=== PATIENT | male | born 1940 | race Caucasian/White ===

== ENCOUNTER → 2016-11-27 | Outpatient (CLI) | payer MEDICARE, BC ==
[~2016-11-27] MED LIST: ASPIRIN 32325 MG/TAB PO; BENICAR20 MG PO; GLIPIZIDE10 M2 PO; LIPITOR20 M1 PO; PROTONIX TR40 M1 PO; TOPROL XL 50MG50 MG PO
== END ==
LOC: LAB 12:57
DX: E11.9 Type 2 diabetes mellitus without complications (principal); I10 Essential (primary) hypertension

== ENCOUNTER → 2016-12-09 | Outpatient (CLI) | payer MEDICARE, BC | LOC: LAB 15:49 | DX: Z11.59 Encounter for screening for other viral diseases (principal) ==

== ENCOUNTER → 2016-12-24 | Outpatient (CLI) | payer MEDICARE, BC ==
[2016-03-21 17:18] VITALS: BP 152/73
== END ==
LOC: LAB 12:17
DX: R39.198 Other difficulties with micturition (principal)

== ENCOUNTER → 2017-04-12 | Outpatient (CLI) | payer MEDICARE, BC ==
[2016-03-21 17:18] VITALS: BP 152/73
== END ==
LOC: LAB 11:49
DX: E11.42 Type 2 diabetes mellitus with diabetic polyneuropathy (principal); E78.2 Mixed hyperlipidemia

== ENCOUNTER → 2017-07-05 | Outpatient (CLI) | payer MEDICARE, BC ==
[2016-03-21 17:18] VITALS: BP 152/73
== END ==
LOC: LAB 15:11
DX: E11.42 Type 2 diabetes mellitus with diabetic polyneuropathy (principal)

== ENCOUNTER → 2017-09-07 | Outpatient (CLI) | payer MEDICARE, BC ==
[2016-03-21 17:18] VITALS: BP 152/73
[2017-09-07 14:29] LABS: MEAN PLATELET VOLUME 9.8 fl (7.4-10.4); RED BLOOD COUNT 5.16 M/mm3 (4.20-5.60); WHITE BLOOD COUNT 7.2 K/mm3 (4.8-10.8)
[2017-09-07 14:49] LABS: ALBUMIN 4.1 g/dL (3.5-5.0); BUN/CREATININE RATIO 26.3 (6.0-26.0); CALCIUM 9.4 mg/dL (8.4-10.2); POTASSIUM 4.6 mmol/L (3.6-5.0); TOTAL PROTEIN 7.3 g/dL (6.3-8.2)
[2017-09-07 15:24] LABS: PH-URINE 5.5 (5.0 - 8.0); URINE APPEARANCE CLEAR; URINE COLOR YELLOW
[2017-09-07 15:25] LABS: URINE BILIRUBIN NEGATIVE (NEGATIVE); URINE BLOOD NEGATIVE (NEGATIVE); URINE KETONE NEGATIVE (NEGATIVE); URINE LEUKOCYTE ESTERASE NEGATIVE (NEGATIVE); URINE NITRATE NEGATIVE (NEGATIVE); URINE PROTEIN(semi-quant) NEGATIVE (NEGATIVE); URINE UROBILINOGEN NORMAL (NORMAL); URINE WBC 0-1 /hpf (0-3)
== END ==
LOC: LAB 14:15
PROVIDERS: Family Medicine
DX: I25.10 Atherosclerotic heart disease of native coronary artery without angina pectoris (principal); E11.9 Type 2 diabetes mellitus without complications; E78.5 Hyperlipidemia, unspecified; E66.01 Morbid (severe) obesity due to excess calories

== ENCOUNTER → 2017-10-13 | Outpatient (CLI) | payer MEDICARE, BC ==
[2016-03-21 17:18] VITALS: BP 152/73
[2017-10-13 14:28] LABS: ALBUMIN 3.9 g/dL (3.5-5.0); BUN/CREATININE RATIO 23.8 (6.0-26.0); CALCIUM 9.2 mg/dL (8.4-10.2); POTASSIUM 4.6 mmol/L (3.6-5.0); TOTAL PROTEIN 7.1 g/dL (6.3-8.2)
== END ==
LOC: LAB 13:58
PROVIDERS: Registered Nurse
DX: E11.42 Type 2 diabetes mellitus with diabetic polyneuropathy (principal)

== ENCOUNTER → 2018-02-22 | Outpatient (CLI) | payer MEDICARE, BC ==
[2016-03-21 17:18] VITALS: BP 152/73
[2018-02-22 14:21] LABS: EOS # 0.2 (0.04-0.40); EOS % 1.9 % (0.0-4.0); HEMATOCRIT 49.7 % (42.0-52.0); LYMPH# 1.2 (1.50-4.00); MEAN CELL VOLUME 97 fl (78-100); MEAN CORPUSCULAR HEMOGLOBIN 31 pg (27-31); MEAN CORPUSCULAR HGB CONC 32 g/dL (33-37); MEAN PLATELET VOLUME 9.8 fl (7.4-10.4); MONO # 0.9 (0.20-0.80); NEU # 5.5 (1.40-6.50); PLATELET COUNT 269 K/mm3 (130-400); RED BLOOD COUNT 5.12 M/mm3 (4.20-5.60); RED CELL DISTRIBUTION WIDTH 13.3 % (11.5-14.5); WHITE BLOOD COUNT 7.8 K/mm3 (4.8-10.8)
[2018-02-22 14:54] LABS: ALBUMIN 3.9 g/dL (3.5-5.0); BUN/CREATININE RATIO 27.1 (6.0-26.0); CALCIUM 9.6 mg/dL (8.4-10.2); POTASSIUM 4.5 mmol/L (3.6-5.0); TOTAL BILIRUBIN 0.9 mg/dL (0.2-1.3); TOTAL PROTEIN 6.8 g/dL (6.3-8.2)
[2018-02-22 16:00] LABS: URINE APPEARANCE CLEAR; URINE BILIRUBIN NEGATIVE (NEGATIVE); URINE BLOOD NEGATIVE (NEGATIVE); URINE COLOR YELLOW; URINE KETONE NEGATIVE (NEGATIVE); URINE LEUKOCYTE ESTERASE NEGATIVE (NEGATIVE); URINE NITRATE NEGATIVE (NEGATIVE); URINE PROTEIN(semi-quant) NEGATIVE (NEGATIVE); URINE UROBILINOGEN NORMAL (NORMAL); URINE WBC 0-1 /hpf (0-3)
[2018-02-22 16:01] LABS: URINE MUCUS PRESENT (NOT PRESENT)
[2018-02-22 22:34] LABS: TESTOSTERONE 39 ng/dL (221-716)
== END ==
LOC: LAB 13:58
PROVIDERS: Family Medicine
DX: Z00.00 Encounter for general adult medical examination without abnormal findings (principal); Z12.5 Encounter for screening for malignant neoplasm of prostate; E34.9 Endocrine disorder, unspecified; E11.9 Type 2 diabetes mellitus without complications; M81.0 Age-related osteoporosis without current pathological fracture; E66.01 Morbid (severe) obesity due to excess calories

== ENCOUNTER → 2018-08-02 | Outpatient (CLI) | payer MEDICARE, BC ==
[2016-03-21 17:18] VITALS: BP 152/73
[2018-08-02 17:59] LABS: URINE APPEARANCE CLEAR; URINE COLOR YELLOW
[2018-08-02 18:00] LABS: URINE BILIRUBIN NEGATIVE (NEGATIVE); URINE BLOOD NEGATIVE (NEGATIVE); URINE KETONE NEGATIVE (NEGATIVE); URINE NITRATE NEGATIVE (NEGATIVE); URINE PROTEIN(semi-quant) NEGATIVE (NEGATIVE); URINE UROBILINOGEN NORMAL (NORMAL)
[2018-08-02 18:01] LABS: URINE LEUKOCYTE ESTERASE NEGATIVE (NEGATIVE); URINE WBC 0-1 /hpf (0-3)
== END ==
LOC: LAB 14:14
PROVIDERS: Family Medicine
DX: Z00.00 Encounter for general adult medical examination without abnormal findings (principal); E11.9 Type 2 diabetes mellitus without complications; E78.2 Mixed hyperlipidemia

== ENCOUNTER → 2018-11-18 | Outpatient (CLI) | payer MEDICARE, BC ==
[2016-03-21 17:18] VITALS: BP 152/73
[2018-11-18 15:52] LABS: POTASSIUM 4.1 mmol/L (3.6-5.0)
[2018-11-18 15:53] LABS: ALBUMIN 4.1 g/dL (3.5-5.0); CALCIUM 9.3 mg/dL (8.4-10.2); TOTAL BILIRUBIN 0.7 mg/dL (0.2-1.3); TOTAL PROTEIN 6.9 g/dL (6.3-8.2)
[2018-11-18 16:22] LABS: EOS # 0.1 (0.04-0.40); EOS % 1.6 % (0.0-4.0); HEMATOCRIT 50.4 % (42.0-52.0); HEMOGLOBIN 16.1 g/dL (13.5-18.0); LYMPH# 1.1 (1.50-4.00); MEAN CELL VOLUME 97 fl (78-100); MEAN CORPUSCULAR HEMOGLOBIN 31 pg (27-31); MEAN CORPUSCULAR HGB CONC 32 g/dL (33-37); MEAN PLATELET VOLUME 10.5 fl (7.4-10.4); MONO # 0.8 (0.20-0.80); NEU # 5.5 (1.40-6.50); PLATELET COUNT 286 K/mm3 (130-400); RED CELL DISTRIBUTION WIDTH 12.9 % (11.5-14.5); WHITE BLOOD COUNT 7.6 K/mm3 (4.8-10.8)
[2018-11-18 20:50] LABS: URINE APPEARANCE CLEAR; URINE BILIRUBIN NEGATIVE (NEGATIVE); URINE COLOR YELLOW; URINE KETONE NEGATIVE (NEGATIVE); URINE NITRATE NEGATIVE (NEGATIVE); URINE PROTEIN(semi-quant) NEGATIVE (NEGATIVE); URINE UROBILINOGEN NORMAL (NORMAL)
[2018-11-18 20:51] LABS: URINE BLOOD NEGATIVE (NEGATIVE); URINE LEUKOCYTE ESTERASE NEGATIVE (NEGATIVE); URINE WBC 0-1 /hpf (0-3)
[2018-11-18 23:27] LABS: TESTOSTERONE 36 ng/dL (221-716)
== END ==
LOC: LAB 13:36
PROVIDERS: Family Medicine
DX: Z12.5 Encounter for screening for malignant neoplasm of prostate (principal); Z00.00 Encounter for general adult medical examination without abnormal findings; E11.9 Type 2 diabetes mellitus without complications; M81.0 Age-related osteoporosis without current pathological fracture; E29.1 Testicular hypofunction

== ENCOUNTER → 2019-09-01 | Outpatient (CLI) | payer MEDICARE, BC ==
[2016-03-21 17:18] VITALS: BP 152/73
[2019-09-01 14:34] LABS: ALBUMIN 3.8 g/dL (3.4-4.8); HEMATOCRIT 46.8 % (42.0-52.0); HEMOGLOBIN 14.8 g/dL (13.5-18.0); MEAN CELL VOLUME 96 fl (78-100); MEAN CORPUSCULAR HEMOGLOBIN 30 pg (27-31); MEAN CORPUSCULAR HGB CONC 32 g/dL (33-37); MEAN PLATELET VOLUME 10.3 fl (7.4-10.4); PLATELET COUNT 312 K/mm3 (130-400); POTASSIUM 4.3 mmol/L (3.5-5.1); WHITE BLOOD COUNT 11.8 K/mm3 (4.8-10.8)
[2019-09-01 14:35] LABS: CALCIUM 9.6 mg/dL (8.3-10.5)
[2019-09-01 14:37] LABS: TOTAL PROTEIN 6.8 g/dL (6.2-8.1)
[2019-09-01 14:38] LABS: TOTAL BILIRUBIN 1.1 mg/dL (0.2-1.2)
[2019-09-01 14:51] LABS: LYMPHOCYTE 9 % (20-51); NEUTROPHILS 77 % (42-75)
[2019-09-01 14:52] LABS: MONOCYTE 13 % (3-10)
[2019-09-01 15:01] LABS: URINE APPEARANCE CLEAR; URINE BILIRUBIN NEGATIVE (NEGATIVE); URINE BLOOD TRACE (NEGATIVE); URINE COLOR YELLOW; URINE GLUCOSE NEGATIVE (NEGATIVE); URINE KETONE 1+ (NEGATIVE); URINE LEUKOCYTE ESTERASE NEGATIVE (NEGATIVE); URINE MUCUS PRESENT (NOT PRESENT); URINE NITRATE NEGATIVE (NEGATIVE); URINE PROTEIN(semi-quant) NEGATIVE (NEGATIVE); URINE UROBILINOGEN NORMAL (NORMAL)
[2019-09-01 23:10] LABS: TESTOSTERONE 28 ng/dL (221-716)
== END ==
LOC: LAB 13:16
PROVIDERS: Family Medicine
DX: Z00.00 Encounter for general adult medical examination without abnormal findings (principal); E11.42 Type 2 diabetes mellitus with diabetic polyneuropathy; M81.0 Age-related osteoporosis without current pathological fracture; E78.5 Hyperlipidemia, unspecified; I25.10 Atherosclerotic heart disease of native coronary artery without angina pectoris; E66.01 Morbid (severe) obesity due to excess calories; M19.90 Unspecified osteoarthritis, unspecified site; E34.9 Endocrine disorder, unspecified; E55.9 Vitamin D deficiency, unspecified

== ENCOUNTER → 2020-04-12 | Outpatient (CLI) | payer MEDICARE, BC ==
[2016-03-21 17:18] VITALS: BP 152/73
[2020-04-12 14:37] LABS: EOS # 0.1 (0.04-0.40); EOS % 1.6 % (0.0-4.0); HEMOGLOBIN 15.5 g/dL (13.5-18.0); LYMPH# 1.1 (1.50-4.00); MEAN CELL VOLUME 97 fl (78-100); MEAN CORPUSCULAR HEMOGLOBIN 31 pg (27-31); MEAN CORPUSCULAR HGB CONC 32 g/dL (33-37); MONO # 0.9 (0.20-0.80); NEU # 5.5 (1.40-6.50); PLATELET COUNT 288 K/mm3 (130-400); RED BLOOD COUNT 4.96 M/mm3 (4.20-5.60); RED CELL DISTRIBUTION WIDTH 12.9 % (11.5-14.5); WHITE BLOOD COUNT 7.6 K/mm3 (4.8-10.8)
[2020-04-12 14:43] LABS: URINE APPEARANCE CLEAR; URINE BILIRUBIN NEGATIVE (NEGATIVE); URINE BLOOD NEGATIVE (NEGATIVE); URINE COLOR YELLLOW; URINE KETONE NEGATIVE (NEGATIVE); URINE LEUKOCYTE ESTERASE NEGATIVE (NEGATIVE); URINE NITRATE NEGATIVE (NEGATIVE); URINE PROTEIN(semi-quant) NEGATIVE (NEGATIVE); URINE UROBILINOGEN NORMAL (NORMAL)
[2020-04-12 14:44] LABS: URINE MUCUS PRESENT (NOT PRESENT)
[2020-04-12 14:45] LABS: CALCIUM 9.1 mg/dL (8.3-10.5)
[2020-04-12 14:46] LABS: TOTAL PROTEIN 6.6 g/dL (6.2-8.1)
[2020-04-12 14:48] LABS: TOTAL BILIRUBIN 0.8 mg/dL (0.2-1.2)
== END ==
LOC: LAB 13:52
PROVIDERS: Internal Medicine Endocrinology, Diabetes & Metabolism
DX: Z00.00 Encounter for general adult medical examination without abnormal findings (principal); E11.42 Type 2 diabetes mellitus with diabetic polyneuropathy; E78.2 Mixed hyperlipidemia; I10 Essential (primary) hypertension; I25.10 Atherosclerotic heart disease of native coronary artery without angina pectoris; E55.9 Vitamin D deficiency, unspecified; E66.01 Morbid (severe) obesity due to excess calories; M81.0 Age-related osteoporosis without current pathological fracture; M19.90 Unspecified osteoarthritis, unspecified site; Z68.41 Body mass index [BMI] 40.0-44.9, adult

== ENCOUNTER → 2020-12-20 | Outpatient (CLI) | payer MEDICARE ==
[2016-03-21 17:18] VITALS: BP 152/73
== END ==
LOC: LAB 13:14
DX: E11.9 Type 2 diabetes mellitus without complications (principal); E03.9 Hypothyroidism, unspecified

== ENCOUNTER → 2021-02-21 | Outpatient (CLI) | payer MEDICARE ==
[2016-03-21 17:18] VITALS: BP 152/73
[2021-02-21 13:17] LABS: ALBUMIN 3.9 g/dL (3.4-4.8); POTASSIUM 4.4 mmol/L (3.5-5.1)
[2021-02-21 13:19] LABS: TOTAL PROTEIN 6.6 g/dL (6.2-8.1)
[2021-02-21 13:21] LABS: TOTAL BILIRUBIN 0.6 mg/dL (0.2-1.2)
== END ==
LOC: LAB 12:37
PROVIDERS: Internal Medicine Endocrinology, Diabetes & Metabolism
DX: E11.42 Type 2 diabetes mellitus with diabetic polyneuropathy (principal); E55.9 Vitamin D deficiency, unspecified; I25.10 Atherosclerotic heart disease of native coronary artery without angina pectoris; I10 Essential (primary) hypertension; R78.2 Finding of cocaine in blood; E66.01 Morbid (severe) obesity due to excess calories; Z68.41 Body mass index [BMI] 40.0-44.9, adult

== ENCOUNTER → 2021-04-23 | Outpatient (CLI) | payer MEDICARE ==
[2021-04-23 17:43] LABS: BASO # 0.04 (0.02-0.10); EOS # 0.13 (0.04-0.40); EOS % 1.8 % (0.0-4.0); HEMOGLOBIN 15.9 g/dL (13.5-18.0); MEAN CELL VOLUME 97 fl (78-100); MEAN CORPUSCULAR HEMOGLOBIN 32 pg (27-31); MEAN CORPUSCULAR HGB CONC 32 g/dL (33-37); MONO # 0.81 (0.20-0.80); NEU # 5.03 (1.40-6.50); PLATELET COUNT 286 K/mm3 (130-400); RED BLOOD COUNT 5.03 M/mm3 (4.20-5.60); RED CELL DISTRIBUTION WIDTH 12.5 % (11.5-14.5); WHITE BLOOD COUNT 7.3 K/mm3 (4.8-10.8)
== END ==
LOC: LAB 17:00
PROVIDERS: Family Medicine
DX: N40.0 Benign prostatic hyperplasia without lower urinary tract symptoms (principal); D50.9 Iron deficiency anemia, unspecified

== ENCOUNTER → 2021-09-22 | Outpatient (CLI) | payer MEDICARE ==
[2021-09-22 16:49] LABS: BASO # 0.03 K/mm3 (0.02-0.10); EOS # 0.45 K/mm3 (0.04-0.40); EOS % 5.6 % (0.0-4.0); HEMATOCRIT 46.4 % (42.0-52.0); HEMOGLOBIN 14.6 g/dL (13.5-18.0); LYMPH# 1.51 K/mm3 (1.50-4.00); MEAN CELL VOLUME 99 fl (78-100); MEAN CORPUSCULAR HEMOGLOBIN 31 pg (27-31); MEAN CORPUSCULAR HGB CONC 32 g/dL (33-37); MEAN PLATELET VOLUME 9.7 fl (7.4-10.4); MONO # 0.79 K/mm3 (0.20-0.80); NEU # 5.18 K/mm3 (1.40-6.50); PLATELET COUNT 314 K/mm3 (130-400); RED BLOOD COUNT 4.67 M/mm3 (4.20-5.60); RED CELL DISTRIBUTION WIDTH 13.8 % (11.5-14.5)
[2021-09-22 17:01] LABS: ALBUMIN 3.7 g/dL (3.4-4.8); POTASSIUM 3.9 mmol/L (3.5-5.1)
[2021-09-22 17:02] LABS: CALCIUM 9.3 mg/dL (8.3-10.5)
[2021-09-22 17:03] LABS: TOTAL PROTEIN 6.2 g/dL (6.2-8.1)
[2021-09-22 17:05] LABS: TOTAL BILIRUBIN 0.3 mg/dL (0.2-1.2)
== END ==
LOC: LAB 16:21
PROVIDERS: Family Medicine
DX: E11.9 Type 2 diabetes mellitus without complications (principal); I10 Essential (primary) hypertension

== ENCOUNTER → 2024-06-28 | Outpatient (CLI) | payer MEDICARE ==
[2024-06-28 12:43] LABS: BASO # 0.02 K/mm3 (0.02-0.10); EOS % 0.9 % (0.0-4.0); HEMOGLOBIN 15.9 g/dL (13.5-18.0); LYMPH# 0.95 K/mm3 (1.50-4.00); MEAN CELL VOLUME 100 fl (78-100); MEAN CORPUSCULAR HEMOGLOBIN 32 pg (27-31); MEAN CORPUSCULAR HGB CONC 32 g/dL (33-37); MEAN PLATELET VOLUME 9.7 fl (7.4-10.4); MONO # 1.07 K/mm3 (0.20-0.80); NEU # 9.32 K/mm3 (1.40-6.50); PLATELET COUNT 249 K/mm3 (130-400); RED BLOOD COUNT 4.99 M/mm3 (4.20-5.60); RED CELL DISTRIBUTION WIDTH 12.8 % (11.5-14.5); WHITE BLOOD COUNT 11.5 K/mm3 (4.8-10.8)
[2024-06-28 12:53] LABS: CALCIUM 9.3 mg/dL (8.3-10.5)
[2024-06-28 12:54] LABS: TOTAL PROTEIN 6.6 g/dL (6.2-8.1)
[2024-06-28 12:56] LABS: TOTAL BILIRUBIN 0.5 mg/dL (0.2-1.2)
== END ==
LOC: LAB 12:30
PROVIDERS: Nurse Practitioner
DX: R82.998 Other abnormal findings in urine (principal)

== ENCOUNTER → 2024-09-01 | Outpatient (CLI) | payer MEDICARE | LOC: RAD 13:04 | DX: M18.9 Osteoarthritis of first carpometacarpal joint, unspecified (principal); W19.XXXA Unspecified fall, initial encounter ==